=== PATIENT | male | born 1990 | race Caucasian/White ===

== ENCOUNTER 2018-04-23 18:57 | Emergency (ER) | payer MEDICAID ==
[~2018-04-23] VITALS: Ht 182.9 cm; Wt 72.7 kg
[2018-04-23] MEDS ORDERED: BACITRACIN 0.9 GM PACKET OINTMENT TP ONE (20:15)
[2018-04-23] MEDS ORDERED: PERTUSS(ACELL),DIPH,TET VAC/PF 0.5 ML VIAL IM ONE (20:15)
[2018-04-23] MEDS ORDERED: IBUPROFEN 600 MG TABLET PO ONE (20:15)
[2018-04-23] MEDS ORDERED: LIDOCAINE HCL 1% 10 ML VIAL INJ ONE (20:15)
[2018-04-23 22:09] VITALS: BP 121/75
== END 2018-04-23 22:34 | disposition home or self-care (01) ==
LOC: EMS 18:58
DX: S51.812A Laceration without foreign body of left forearm, initial encounter (principal); W45.8XXA Other foreign body or object entering through skin, initial encounter; Y93.89 Activity, other specified; Y92.89 Other specified places as the place of occurrence of the external cause; Y99.8 Other external cause status
CPT/HCPCS: 12032; 90471; 90715; 99284; J3490